=== PATIENT | male | born 1975 | race Caucasian/White ===

== ENCOUNTER 2018-03-21 14:06 | Emergency (ER) | payer SELFPAY ==
[2018-03-21] MEDS: HYDROcodone/APAP 5/325MG 1 TAB TABLET PO (15:18)
[2018-03-21] MEDS: cefTRIAXone IM 1 GM VIAL IM (15:37)
== END 2018-03-21 16:05 | disposition home or self-care (01) ==
LOC: ER 16:05
DX: L08.89 Other specified local infections of the skin and subcutaneous tissue (principal); M79.662 Pain in left lower leg; J45.909 Unspecified asthma, uncomplicated; F17.200 Nicotine dependence, unspecified, uncomplicated; Z88.1 Allergy status to other antibiotic agents; Z88.5 Allergy status to narcotic agent; Z88.8 Allergy status to other drugs, medicaments and biological substances; Z88.6 Allergy status to analgesic agent
CPT/HCPCS: 96372; 99284; J0696